=== PATIENT | female | born 1980 | race Caucasian/White ===

== ENCOUNTER 2016-04-22 13:37 | Emergency (ER) | payer OTHER ==
[~2016-04-22] VITALS: Ht 162.6 cm; Wt 95.3 kg
[2016-04-22 14:32] LABS: URINE BILIRUBIN NEGATIVE (Negative); URINE BLOOD TRACE (Negative); URINE COLOR YELLOW; URINE GLUCOSE-RANDOM* NEGATIVE (Negative); URINE KETONES NEGATIVE (Negative); URINE LEUKOCYTES-REFLEX NEGATIVE (Negative); URINE PROTEIN (DIPSTICK) NEGATIVE (Negative); URINE SPECIFIC GRAVITY 1.025 (1.003-1.035); URINE UROBILINOGEN 0.2 E.U./dl (0.2-1.0)
[2016-04-22] MEDS ORDERED: HYDROCHLOROTHIA25 M2 PO (14:49)
[2016-04-22] MEDS ORDERED: AMLODIPINE BESY10 MG PO (14:50)
[2016-04-22 15:03] LABS: ABSOLUTE NEUTROPHILS 4.1 thou/uL (1.4-8.2); BASOPHILS 0.5 % (0.0-2.0); EOSINOPHILS 2.8 % (0.0-3.0); HEMATOCRIT 37.1 % (37.0-47.0); HEMOGLOBIN 12.5 gm/dL (12.0-15.0); LYMPHOCYTES 32.9 % (24.0-44.0); MCH 29.3 pg (26.0-34.0); MCHC 33.7 % (28.0-37.0); MONOCYTES 5.3 % (1.0-8.0); PLATELET COUNT 247 thou/uL (150-400); POLYS 58.5 % (36.0-66.0); RBC 4.26 mil/uL (4.20-5.00); RDW 12.9 % (10.5-14.5)
[2016-04-22 15:08] LABS: MANUAL DIFF NO
[2016-04-22 15:16] LABS: CALCIUM 8.6 mg/dL (8.5-10.1); CREATININE 0.7 mg/dL (0.6-1.3); POTASSIUM 3.5 mmol/L (3.5-5.1)
[2016-04-22 15:22] LABS: ALBUMIN 3.5 g/dL (3.4-5.0); TOTAL BILIRUBIN 0.2 mg/dL (<0.1-1.0)
[2016-04-22] MEDS ORDERED: NAPROSYN500 MG PO (15:55)
[2016-04-22] MEDS ORDERED: NORCO 5-325 TA1 EACH PO (15:55)
[2016-04-22] MEDS ORDERED: LIORESAL 10 MG10 MG PO (15:55)
[2016-04-22 15:59] VITALS: BP 130/85
== END 2016-04-22 16:13 | disposition home or self-care (01) ==
LOC: ER 13:37
PROVIDERS: Emergency Medicine
DX: S33.5XXA Sprain of ligaments of lumbar spine, initial encounter (principal); J45.909 Unspecified asthma, uncomplicated; I10 Essential (primary) hypertension; F10.99 Alcohol use, unspecified with unspecified alcohol-induced disorder; X50.0XXA Overexertion from strenuous movement or load, initial encounter; Y93.89 Activity, other specified; Y92.59 Other trade areas as the place of occurrence of the external cause; Y99.0 Civilian activity done for income or pay

== ENCOUNTER 2016-09-14 18:18 | Emergency (ER) | payer OTHER ==
[~2016-09-14] VITALS: Ht 165.1 cm; Wt 81.7 kg
[~2016-09-14 18:18] MED LIST: AMLODIPINE BESY10 MG PO; HYDROCHLOROTHIA25 M2 PO; LIORESAL 10 MG10 MG PO; NAPROSYN500 MG PO; NORCO 5-325 TA1 EACH PO
[2016-09-14 19:13] LABS: HEMATOCRIT 39.3 % (37.0-47.0); HEMOGLOBIN 13.7 gm/dL (12.0-15.0); MCH 30.1 pg (26.0-34.0); MCHC 34.8 g/dL (28.0-37.0); MCV 86.6 fL (80.0-100.0); PLATELET COUNT 244 thou/uL (150-400); RBC 4.54 mil/uL (4.20-5.00); RDW 14.4 % (10.5-14.5); WBC 9.3 thou/uL (4.0-11.0)
[2016-09-14 19:15] LABS: MANUAL DIFF YES
[2016-09-14 19:24] LABS: CALCIUM 9.1 mg/dL (8.5-10.1); CREATININE 0.9 mg/dL (0.6-1.0); POTASSIUM 3.1 mmol/L (3.5-5.1)
[2016-09-14 19:39] LABS: ABSOLUTE NEUTROPHILS 8.1 thou/uL (1.4-8.2); ANISOCYTOSIS 2+; TOTAL CELL COUNT 100
[2016-09-14 19:40] LABS: POLYCHROMASIA OCCASIONAL
[2016-09-14] MEDS ORDERED: VASOTEC10 MG PO (20:21)
[2016-09-14] MEDS ORDERED: ZPAK PO (21:04)
[2016-09-14] MEDS ORDERED: COMPAZINE10 MG PO (21:04)
[2016-09-14 22:23] VITALS: BP 108/64
== END 2016-09-14 22:23 | disposition home or self-care (01) ==
LOC: ER 18:18
PROVIDERS: Emergency Medicine
DX: R51 Headache (principal); J45.909 Unspecified asthma, uncomplicated; I10 Essential (primary) hypertension

== ENCOUNTER 2018-01-29 14:39 | Emergency (ER) | payer OTHER ==
[~2018-01-29] VITALS: Ht 162.6 cm; Wt 90.7 kg
[~2018-01-29 14:39] MED LIST changes: +COMPAZINE10 MG PO; +PRINIVIL20 MG PO; +PROZAC20 MG PO; +VASOTEC10 MG PO; +ZOFRAN ODT4 MG PO; +ZPAK PO
[2018-01-29 14:50] VITALS: BP 122/84
== END 2018-01-29 15:30 | disposition home or self-care (01) ==
LOC: ER 14:39
DX: S00.03XA Contusion of scalp, initial encounter (principal); M54.2 Cervicalgia; J45.909 Unspecified asthma, uncomplicated; I10 Essential (primary) hypertension; G43.909 Migraine, unspecified, not intractable, without status migrainosus; W22.8XXA Striking against or struck by other objects, initial encounter; Y92.89 Other specified places as the place of occurrence of the external cause; Y99.0 Civilian activity done for income or pay; Y99.8 Other external cause status